=== PATIENT | female | born 1985 | race Caucasian/White ===

== ENCOUNTER 2025-06-02 13:03 | Emergency (ER) | payer OTHER ==
[~2025-06-02] VITALS: Ht 152.4 cm; Wt 71.0 kg
[2025-06-02] MEDS: KETOROLAC TROMETHAMINE 60 MG/2 ML VIAL IM ONE (14:04)
[2025-06-02] MEDS ORDERED: METH-659 PO (15:33)
[2025-06-02] MEDS ORDERED: IBUP-1492 PO (15:33)
[2025-06-02 15:50] VITALS: BP 116/79; PULSE 88; RESP 18; TEMP 97.905272; O2SAT 97; O2SAT 99
== END 2025-06-02 15:59 | disposition home or self-care (01) ==
LOC: EMS 13:03
DX: S86.911A Strain of unspecified muscle(s) and tendon(s) at lower leg level, right leg, initial encounter (principal); S16.1XXA Strain of muscle, fascia and tendon at neck level, initial encounter; Z88.6 Allergy status to analgesic agent; Z90.49 Acquired absence of other specified parts of digestive tract; W01.0XXA Fall on same level from slipping, tripping and stumbling without subsequent striking against object, initial encounter; Y93.89 Activity, other specified; Y92.89 Other specified places as the place of occurrence of the external cause; Y99.8 Other external cause status
CPT/HCPCS: 99284; 72040; 73562; 96372; J1885